=== PATIENT | male | born 1960 | race Caucasian/White ===

== ENCOUNTER 2019-04-17 16:38 | Inpatient (IN) | payer MEDICAID ==
[~2019-04-17] VITALS: Ht 180.3 cm; Wt 86.7 kg
[~2019-04-17 16:38] MED LIST: FER325 PO; LEVO100T8 PO; LIOT5TAB3 PO
[2019-04-17] MEDS ORDERED: ONDANSETRON 4 MG INJ IV PRN (18:30)
[2019-04-17] MEDS ORDERED: ACETAMINOPHEN 325 MG TAB PO PRN ×2 (18:30→20:00)
--- NOTE | 2019-04-17 19:07 | ERD ---
ER Documentation Chief Complaint Chief Complaint sent by pmd for low H & h , feels light headaed , sob HPI This is a very pleasant 58-year-old male history of chronic rectal bleed who comes in after he was sent in by his primary care physician for low H&H. Dr. Dennison noted by the patient today that his hemoglobin was below 6. Apparently the patient has chronic rectal bleeding and was finally convinced to have a blood test drawn at outside laboratory on Thursday. Results were found in today. Patient denies fevers chills but does complain of shortness of breath on exertion and lightheadedness occasionally. Denies chest pain or palpitations. ROS All systems reviewed and are negative except as per history of present illness. Allergies Allergies: Coded Allergies: No Known Allergy (Unverified , 04/17/19) PMhx/Soc History of Surgery: Yes (Colonoscopy) Hx Miscellaneous Medical Probl: Yes (thyroid problem, unknown rectal bleeding problem) Hx Alcohol Use: No Hx Substance Use: No Hx Tobacco Use: No Smoking Status: Never smoker Physical Exam Vitals Vital Signs Date Temp Pulse Resp B/P (MAP) Pulse Ox O2 O2 Flow FiO2 Time Delivery Rate 04/17/19 76 18 121/77 100 Room Air 18:44 (92) 04/17/19 78 18 121/81 100 Room Air 17:45 (94) 04/17/19 97.2 98 16 149/83 100 16:40 (105) Physical Exam Const: No acute distress Head: Atraumatic Eyes: Normal Conjunctiva ENT: Normal External Ears, Nose and Mouth. Neck: Full range of motion. No meningismus. Resp: Clear to auscultation bilaterally Cardio: Regular rate and rhythm, no murmurs Abd: Soft, non tender, non distended. Normal bowel sounds Skin: No petechiae or rashes Back: No midline or flank tenderness Ext: No cyanosis, or edema Neur: Awake and alert Psych: Normal Mood and Affect Result Diagram: 04/17/19 1745 04/17/19 174 Results 24 hrs Laboratory Tests Test 04/17/19 17:45 White Blood Count 10.0 10^3/ul Red Blood Count 3.41 10^6/ul Hemoglobin 5.5 g/dl Hematocrit 21.2 % Mean Corpuscular Volume 62.2 fl Mean Corpuscular Hemoglobin 16.1 pg Mean Corpuscular Hemoglobin Concent 25.9 g/dl Red Cell Distribution Width 19.7 % Platelet Count 454 10^3/UL Mean Platelet Volume 9.7 fl Immature Granulocytes % 0.800 % Neutrophils % % Segmented Neutrophils % (Manual) 68 % Lymphocytes % % Lymphocytes % (Manual) 19 % Monocytes % % Monocytes % (Manual) 12 % Eosinophils % % Basophils % % Myelocytes % (Manual) 1 % Nucleated Red Blood Cells % 0.7 /100WBC Immature Granulocytes # 0.080 10^3/ul Neutrophils # 10^3/ul Lymphocytes (Manual) 1.9 10^3/ul Lymphocytes # 10^3/ul Monocytes # 10^3/ul Monocytes # (Manual) 1.2 10^3/ul Eosinophils # 10^3/ul Basophils # 10^3/ul Myelocytes # 0.1 10^3/ul Nucleated Red Blood Cells # 10^3/ul Platelet Estimate NORMAL Giant Platelets 1 % Polychromasia 3+ Hypochromasia 2+ Poikilocytosis 2+ Anisocytosis 3+ Microcytosis 3+ Elliptocytes 2+ Absolute Reticulocyte Count 0.086 X10^6 Percent Reticulocyte Count 2.5 % Sodium Level 138 mmol/L Potassium Level 3.9 mmol/L Chloride Level 102 mmol/L Carbon Dioxide Level 24 mmol/L Anion Gap 12 Blood Urea Nitrogen 9 mg/dl Creatinine 1.01 mg/dl Est Glomerular Filtrat Rate mL/min > 60 mL/min Glucose Level 117 mg/dl Calcium Level 9.4 mg/dl Lactate Dehydrogenase 370 IU/L Current Medications Medications Dose Sig/Sarah Start Time Status Last (Trade) Ordered Route PRN Stop Time Admin Dose Reason Admin Ondansetron 4 mg BRIDGE ORDER 04/17/19 HCl (Zofran PRN IV 18:30 Inj) NAUSEA/VOMITI 04/18/19 18:29 NG 650 mg ER BRIDGE 04/17/19 Acetaminophen PRN PO 18:30 (Tylenol .MILD PAIN 04/18/19 18:29 Tab) 1-3 OR TEMP Procedures/MDM Medical decision making: Is a 58-year-old male who comes in essentially for severe symptomatic anemia. Is been typed and crossmatch for [address] Dennison will admit the patient primarily. Dr. Davila from GI is consulted as well Departure Diagnosis: Primary Impression: Severe anemia Condition: Serious JOSE GARCES Apr 17, 2019 19:07
[2019-04-17] MEDS ORDERED: NACL 0.9% 3 ML SYG IV SCH (20:00)
[2019-04-17] MEDS ORDERED: SOD FERRIC GLUC COMPLX 125 MG in SOD CHLORIDE 0.9% 100 ML IVPB ONE (20:00)
[2019-04-17] MEDS ORDERED: MAGNESIUM CITRATE 300 ML BTL PO ONE (20:00)
[2019-04-17] MEDS ORDERED: DOCUSATE SODIUM 100 MG CAP PO PRN (20:00)
[2019-04-17] MEDS ORDERED: ONDANSETRON 4 MG TAB PO PRN (20:00)
[2019-04-17 22:45] VITALS: BP 131/80; PULSE 66; RESP 18
[2019-04-17 23:15] VITALS: BP 124/75; PULSE 76; RESP 18
[2019-04-18] VITALS (22 sets, daily range): BP systolic 114–163; BP diastolic 71–90; PULSE 66–78; RESP 18–25; Ht 180.3 cm; Wt 86.7 kg
[2019-04-18] MEDS: FAMOTIDINE 20 MG TAB PO SCH ×3 (00:05→21:25)
[2019-04-18] MEDS ORDERED: PEG/ELECTROLYTES 4L BTL PO ONE (00:30)
--- NOTE | 2019-04-18 08:26 | HP ---
Date/Time of Note Date/Time of Note DATE: 04/18/19 TIME: 08:21 Assessment/Plan VTE Prophylaxis SCD applied (from Nsg): Yes SCD contraindicated: low risk/ambulating Pharmacological prophylaxis: NA/contraindicated Pharm contraindication: bleeding Lines/Catheters IV Catheter Type (from Nrsg): Peripheral IV Assessment/Plan Problems: (1) Severe anemia Status: Acute Comment: Comfortably this is due to gastrointestinal bleeding blood losses. He has a severe iron deficiency. He has been transfused to deal with the acute phase has receiving IV iron to help rebuild his stores. The critical issues to understand what is the underlying pathology causing this. GI consult has already seen him initially and will be performing endoscopy today. In the meantime due to his not having insurance and this being a critical impediment I am going to ask our vocational case manager to get the paperwork started for emergency medical at once Result Diagram: 04/17/19 1745 04/17/19 1745 Results 24hrs Laboratory Tests Test 04/17/19 17:45 White Blood Count 10.0 Red Blood Count 3.41 L Hemoglobin 5.5 *L Hematocrit 21.2 L Mean Corpuscular Volume 62.2 L Mean Corpuscular Hemoglobin 16.1 L Mean Corpuscular Hemoglobin Concent 25.9 L Red Cell Distribution Width 19.7 H Platelet Count 454 H Mean Platelet Volume 9.7 Immature Granulocytes % 0.800 H Neutrophils % Segmented Neutrophils % (Manual) 68 Lymphocytes % Lymphocytes % (Manual) 19 Monocytes % Monocytes % (Manual) 12 H Eosinophils % Basophils % Myelocytes % (Manual) 1 H Nucleated Red Blood Cells % 0.7 H Immature Granulocytes # 0.080 H Neutrophils # Lymphocytes (Manual) 1.9 Lymphocytes # Monocytes # Monocytes # (Manual) 1.2 H Eosinophils # Basophils # Myelocytes # 0.1 H Nucleated Red Blood Cells # Platelet Estimate NORMAL Giant Platelets 1 H Polychromasia 3+ Hypochromasia 2+ Poikilocytosis 2+ Anisocytosis 3+ Microcytosis 3+ Elliptocytes 2+ Absolute Reticulocyte Count 0.086 Percent Reticulocyte Count 2.5 H Prothrombin Time 13.0 Prothrombin Time Ratio 1.0 INR International Normalized Ratio 0.97 Activated Partial Thromboplast Time 27.3 Sodium Level 138 Potassium Level 3.9 Chloride Level 102 Carbon Dioxide Level 24 Anion Gap 12 Blood Urea Nitrogen 9 Creatinine 1.01 Est Glomerular Filtrat Rate mL/min > 60 Glucose Level 117 Calcium Level 9.4 Iron Level 34 L Total Iron Binding Capacity 539 H Percent Iron Saturation 6 L Lactate Dehydrogenase 370 HPI/ROS Admit Date/Time Admit Date/Time Apr 17, 2019 at 18:27 Hx of Present Illness 58-year-old single male who I directed to come to the emergency room. Is a history of some rectal bleeding and had actually been referred for years ago to Dr. Keenan for screening scoping. He had the scoping although my office records do not actually have a copy of report. Patient stated that he was not told there are any problems and so he let it be. The rectal bleeding stopped 1 week after his endoscopy 4 years ago. However it recurred and he has had rectal bleeding since that time. Has been inconsistent at best with follow-up visits having skipped a physical with me in November of this year. He took the lab slip for that physical to [facility] on Thursday for blood tests. I was called early Thursday morning to advise that he had critical anemia with a hemoglobin of 5.7 with microcytic indices. I called him and advised that he presented himself to the emergency room so that we could try and give him blood. He said he would take it under consideration I said and I had advised him that if he was going to disregard my advice he is at least need to be taking iron with vitamin C. 24 hours later he chose to follow the advice and presented to the emergency room at this hospital although this is not actually close to where he lives. A portion of his impediment was that he had lost his medical insurance. ROS Constitutional: no complaints Eyes: no complaints ENT: no complaints Respiratory: shortness of breath (Dyspnea on exertion) Cardiovascular: no complaints (Palpitations but no chest pain despite being physically active with a critical anemia) Gastrointestinal: blood (Bright red blood per rectum for a very long period of time) Genitourinary: no complaints Skin: no complaints Neurologic: no complaints Endocrine: no complaints Lymphatic: no complaints PMH/Family/Social Past Medical History Medical History: GI bleed Medications Current Medications IV Flush (NS 3 ml) 3 ml PER PROTOCOL IV ; Start 04/17/19 at 20:00 Ondansetron HCl (Zofran Tab) 4 mg Q6H PRN PO NAUSEA/VOMITING; Start 04/17/19 at 20:00 Acetaminophen (Tylenol Tab) 650 mg Q6H PRN PO .PAIN 1-3 OR TEMP; Start 04/17/19 at 20:00 Docusate Sodium (Colace) 100 mg Q12H PRN PO .CONSTIPATION; Start 04/17/19 at 20:00 Famotidine (Pepcid) 20 mg Q12 PO Last administered on 04/18/19at 00:05; Admin Dose 20 MG; Start 04/17/19 at 21:00 Ferric Sodium Gluconate Complex 125 mg/Sodium Chloride 100 ml @ 100 mls/hr DAILY@1300 IVPB ; Start 04/18/19 at 13:00; Stop 04/20/19 at 13:59 Ferric Sodium Gluconate Complex 125 mg/Sodium Chloride 100 ml @ 100 mls/hr ONCE ONCE IVPB ; Start 04/18/19 at 09:30; Stop 04/18/19 at 10:29 Coded Allergies: No Known Allergy (Unverified , 04/17/19) Past Surgical History Past Surgical Hx: no surgical history Family History Significant Family History: no pertinent family hx Social History Alcohol Use: none Smoking Status: Never smoker Drug Use: none Exam/Review of Systems Vital Signs Vitals Vital Signs Date Temp Pulse Resp B/P (MAP) Pulse Ox O2 O2 Flow FiO2 Time Delivery Rate 04/18/19 98.0 72 18 121/71 97 08:01 (88) 04/18/19 Room Air 06:30 Intake and Output 04/17/19 04/17/19 04/18/19 1515:00 23:00 07:00 IntakeIntake Total 450 ml 4340 ml BalanceBalance 450 ml 4340 ml Exam Exam male lying in bed. Please note his complete his transfusions and as such is not quite as pale Constitutional: alert, oriented, well developed Psych: anxiety Head: normocephalic, atraumatic Eyes: nl conjunctiva, EOMI, nl lids ENMT: nl external ears & nose, nl lips & teeth, nl nasal mucosa & septum Neck: supple, non-tender Respiratory: clear to auscultation, normal air movement Cardiovascular: regular rate and rhythm, nl pulses Gastrointestinal: soft, nl liver, spleen, non-tender Musculoskeletal: nl extremities to inspection, nl gait and stance Extremities: normal pulses FRANCESCA MCDONALD MD Apr 18, 2019 08:26
[2019-04-18] MEDS ORDERED: SOD FERRIC GLUC COMPLX 125 MG in SOD CHLORIDE 0.9% 100 ML IVPB ONE (09:30)
--- NOTE | 2019-04-18 12:45 | PREAC ---
Date/Time of Note Date/Time of Note DATE: 04/18/19 TIME: 12:43 Anesthesia Eval and Record Evaluation Time Pre-Procedure Interview DATE: 04/18/19 TIME: 12:43 Age 58 Sex male NPO: 8 hrs Preoperative diagnosis GI bleed Planned procedure EGD/Colonoscopy Past Medical History Past Medical History: Includes Heme: Anemia Surgery & Anesthesia Issues No known issue Meds Anticoagulation: No Beta Adam within 24 hr: No Reason Beta Adam not given: Pt. not on B-Adam Current Medications IV Flush (NS 3 ml) 3 ml PER PROTOCOL IV ; Start 04/17/19 at 20:00 Ondansetron HCl (Zofran Tab) 4 mg Q6H PRN PO NAUSEA/VOMITING; Start 04/17/19 at 20:00 Acetaminophen (Tylenol Tab) 650 mg Q6H PRN PO .PAIN 1-3 OR TEMP; Start 04/17/19 at 20:00 Docusate Sodium (Colace) 100 mg Q12H PRN PO .CONSTIPATION; Start 04/17/19 at 20:00 Famotidine (Pepcid) 20 mg Q12 PO Last administered on 04/18/19at 00:05; Admin Dose 20 MG; Start 04/17/19 at 21:00 Ferric Sodium Gluconate Complex 125 mg/Sodium Chloride 100 ml @ 100 mls/hr DAILY@1300 IVPB ; Start 04/18/19 at 13:00; Stop 04/20/19 at 13:59 Meds reviewed: Yes Allergies Coded Allergies: No Known Allergy (Unverified , 04/17/19) Allergies Reviewed: Yes Labs/Studies Labs Reviewed: Reviewed by anesthesiologist Result Diagram: 04/18/19 0953 04/18/19 0952 Laboratory Tests 04/18/19 09:52 04/18/19 09:53 Blood Bank Test 04/17/19 18:10 Antibody Screen NEGATIVE Blood Product Summary Counts Blood Type A POSITIVE Crossmatch Red Blood Cells test: N/A Pre-procedure Exam Last vitals Vital Signs Date Temp Pulse Resp B/P (MAP) Pulse Ox O2 O2 Flow FiO2 Time Delivery Rate 04/18/19 97.8 68 20 131/88 98 Room Air 12:32 (102) Airway: Adequate mouth opening, Adequate thyromental dist Mallampati: Mallampati II Teeth: Normal Lung: Normal Heart: Normal ASA Physical Status ASA physical status: 2 Emergency: E Planned Anesthetic General/MAC: MAC Pre-operative Attestations Prior to commencing anesthesia and surgery, the patient was re-evaluated, there was verification of: *The patient's identity *The results of appropriate recent lab work and preoperative vital signs *The above evaluation not changing prior to induction *Anesthetic plan, risk benefits, alternative and complications discussed with patient/family; questions answered; patient/family understands, accepts and wishes to proceed. TERESA ROSE Apr 18, 2019 12:45
[2019-04-18] MEDS ORDERED: LIDOCAINE 2% (SDV) 5 ML INJ ONE (12:46)
[2019-04-18] MEDS ORDERED: PROPOFOL 60 ML ONE (12:46)
[2019-04-18] MEDS ORDERED: LEVOTHYROXINE 100 MCG TAB PO ONE (13:30)
--- NOTE | 2019-04-18 13:41 | PAC ---
Date/Time of Note Date/Time of Note DATE: 04/18/19 TIME: 13:40 Post-Anesthesia Notes Post-Anesthesia Note Last documented vital signs Vital Signs Date Temp Pulse Resp B/P (MAP) Pulse Ox O2 O2 Flow FiO2 Time Delivery Rate 04/18/19 97.8 98 68 89 20 16 131/88 98 100 Room 12:32 133 (102) 136 Air face 0 /83 mask 6L Activity: WNL Respiratory function: WNL Cardiovascular function: WNL Mental status: Baseline Pain reasonably controlled: Yes Hydration appropriate: Yes Nausea/Vomiting absent: Yes TERESA ROSE Apr 18, 2019 13:41
[2019-04-18] MEDS: SOD FERRIC GLUC COMPLX 125 MG in SOD CHLORIDE 0.9% 100 ML IVPB SCH (16:06)
[2019-04-19 02:00] VITALS: BP 94/56; PULSE 66; RESP 19
[2019-04-19] MEDS ORDERED: LEVOTHYROXINE 100 MCG TAB PO SCH (06:00)
[2019-04-19 08:00] VITALS: BP 107/70; PULSE 69; RESP 16
[2019-04-19] MEDS: FAMOTIDINE 20 MG TAB PO SCH (09:59)
--- NOTE | 2019-04-19 13:06 | DS ---
Date/Time of Note Date/Time of Note DATE: 04/19/19 TIME: 13:03 Discharge Summary Admission/Discharge Info Admit Date/Time Apr 17, 2019 at 18:27 Discharge Date/Time April 19, 2019 Discharge Diagnosis Critical anemia with iron deficiency; hypothyroidism; hyperlipidemia; hemorrhoids; esophagitis; segmental colitis of the large intestine Patient Condition: Good Consults Gastroenterology-Dr. Allen Procedures EGD and colonoscopy; transfusions x4; IV Ferrlecit Hx of Present Illness 58-year-old single male who I directed to come to the emergency room. Is a history of some rectal bleeding and had actually been referred for years ago to Dr. Keenan for screening scoping. He had the scoping although my office records do not actually have a copy of report. Patient stated that he was not told there are any problems and so he let it be. The rectal bleeding stopped 1 week after his endoscopy 4 years ago. However it recurred and he has had rectal bleeding since that time. Has been inconsistent at best with follow-up visits having skipped a physical with me in November of this year. He took the lab slip for that physical to [facility] on Thursday for blood tests. I was called early Thursday morning to advise that he had critical anemia with a hemoglobin of 5.7 with microcytic indices. I called him and advised that he presented himself to the emergency room so that we could try and give him blood. He said he would take it under consideration I said and I had advised him that if he was going to disregard my advice he is at least need to be taking iron with vitamin C. 24 hours later he chose to follow the advice and presented to the emergency room at this hospital although this is not actually close to where he lives. A portion of his impediment was that he had lost his medical insurance. Hospital Course 58-year-old male admitted with critical anemia. He was transfused to a stable state for endoscopic procedure with anesthesia and underwent procedures. Fortunately there were no significant abnormalities but biopsies are pending from the biopsies of the segmental colitis. He is now in a much more stable state and ready for discharge. He will follow-up in my office in roughly 3 weeks, with Dr. Allen in roughly 2 weeks Follow-up Plan Dr. Allen in 2 weeks; my office 3 weeks Primary Care Provider Francesca Zhu MD Time spent on discharge: > 30 minutes Pending Labs Laboratory Tests Test 04/19/19 07:09 Lab Scanned Report BLOOD TRANSFUSION Copies To: CC: CIPRIANO ALLEN MD ; FRANCESCA ZHU MD Apr 19, 2019 13:06
--- NOTE | 2019-04-19 13:07 | PDOCDIS ---
Discharge Instructions DIAGNOSIS Discharge Diagnosis Critical anemia with iron deficiency; hypothyroidism; hyperlipidemia; hemorrhoids; esophagitis; segmental colitis of the large intestine CONDITION [id number] Patient Condition: [id number] Good HOME CARE INSTRUCTIONS: [id number] Diet Instructions: [id number] Regular ACTIVITY: [id number] Activity Restrictions: [id number] No Restrictions FOLLOW UP/APPOINTMENTS Follow-up Plan Dr. Allen in 2 weeks; my office 3 weeks FRANCESCA MCDONALD MD Apr 19, 2019 13:06
[2019-04-19] MEDS: SOD FERRIC GLUC COMPLX 125 MG in SOD CHLORIDE 0.9% 100 ML IVPB SCH (13:28)
[2019-04-19 14:00] VITALS: BP 134/87; PULSE 70; RESP 16
[2019-04-20] MEDS ORDERED: LEVOTHYROXINE 100 MCG TAB PO SCH (06:00)
== END 2019-04-19 15:49 | disposition home or self-care (01) | DRG 812 ==
LOC: E/R 16:38 → PP2 18:27
PROVIDERS: ADMIT Internal Medicine; ATTEND Internal Medicine
PROC: 30233N1 Transfusion of Nonautologous Red Blood Cells into Peripheral Vein, Percutaneous Approach (ICD-10-PCS; principal; 2019-04-17)
PROC: 0DBN8ZX Excision of Sigmoid Colon, Via Natural or Artificial Opening Endoscopic, Diagnostic (ICD-10-PCS; 2019-04-18)
PROC: 0DB68ZX Excision of Stomach, Via Natural or Artificial Opening Endoscopic, Diagnostic (ICD-10-PCS; 2019-04-18 12:30)
DX: D50.9 Iron deficiency anemia, unspecified (principal); K50.10 Crohn's disease of large intestine without complications; K62.5 Hemorrhage of anus and rectum; K20.9 Esophagitis, unspecified; K29.70 Gastritis, unspecified, without bleeding; K64.8 Other hemorrhoids; K57.30 Diverticulosis of large intestine without perforation or abscess without bleeding
CPT/HCPCS: 36430; 80048; 80053; 83540; 83615; 83735; 84443; 85025; 85045; 85610; 85730; 86850; 86900; 86901; 86920; 88305; 88312; 88313; J2916; P9016